=== PATIENT | female | born 1955 | race Caucasian/White ===

== ENCOUNTER 2016-11-05 13:39 | Emergency (ER) | payer OTHER, MEDICARE ==
[~2016-11-05] VITALS: Ht 149.9 cm; Wt 49.9 kg
[~2016-11-05 13:39] MED LIST: CYCLOBENZAPRINE10 M2 PO; GABAPENTIN300 MG PO; TYLENOL #31 TAB PO; VICODIN 300 MG-1 TAB PO
--- NOTE | 2016-11-05 16:32 | ED NECK/BACK PAIN COMPLAINT ---
History of Present Illness General Chief Complaint: Lower Extremity Problems Stated Complaint: LOWER BACK AND LEG PAIN Source: patient Exam Limitations: no limitations Vital Signs & Intake/Output Vital Signs & Intake/Output Vital Signs Date Time Temp Pulse Resp B/P B/P Pulse O2 O2 Flow FiO2 Mean Ox Delivery Rate 11/05 1703 97.0 90 18 160/81 99 Room Air 11/05 1344 97.3 103 20 152/98 96 Room Air Allergies Coded Allergies: MDX - Celecoxib (From CELEBREX) (Severe, NAUSEA 03/10/11) Uncoded Allergies: POLLEN (Severe, NASAL CONGESTION 03/10/11) Reconcile Medications CYCLOBENZAPRINE HCL (Cyclobenzaprine HCl) 10 MG TABLET 10 MG PO BID BACK PAIN (Reported) Gabapentin 300 MG CAPSULE 300 MG PO TID BACK PAIN (Reported) HYDROCODONE/ACETAMINOPHEN (Vicodin 5-300 MG Tablet) 5 MG-300 MG TABLET 1 TAB PO PRN PAIN (Reported) Hydrocodone/Acetaminophen (Vicodin 5-300 MG Tablet) 5 MG-300 MG TABLET 1 TAB PO TID pain Methylprednisolone. (Medrol) 4 MG TAB.DS.PK 1 DP PO AD back pain 6 on day 1 then reduce by one tablet daily until gone Tylenol With Codeine (Tylenol With Codeine #3 Tablet) 300 MG-30 MG TABLET 1-2 TAB PO Q6 PRN PAIN Triage Note: C/O LEFT LOWER BACK PAIN SINCE TUESDAY. STATES PAIN RADIATES INTO LEFT LEG Triage Nurses Notes Reviewed? yes Onset: Abrupt Duration: day(s): (4-5), constant, continues in ED, getting worse Timing: single episode today Quality/Severity: moderate, severe, radiation (left leg), sharpness Location: lumbar spine Radiation: upper legs (left) LMP (ages 10-50): post menopausal : No Patient currently breastfeeds: No HPI: 61-year-old female history of chronic low back pain presents complaining of worsening low back pain for the past 4 or 5 days. Pain is located in the left side of lower back and radiates down the left leg to about the knee. Patient reports there is no triggering event or trauma. Pain is worse with any type of movement or touching the area. Patient was seen at an [facility] and had an MRI of her back which showed a bulging disc in her lumbar spine. She was started on Flexeril and gabapentin which she has been taking without any improvement. He reports the pain as a 10 out of 10 and is described as sharp pain. She denies any fever, numbness, tingling, abdominal pain, chest pain, IVDU, shortness of breath. Patient has an appointment with a neurosurgeon this coming Tuesday. (ASIM POPE PA-C) Past History Travel History Traveled to [place] past 21 day No Medical History Any Pertinent Medical History? see below for history Surgical History Surgical History: none Psychosocial History What is your primary language Japanese Tobacco Use: Quit >30 days ago ETOH Use: denies use Illicit Drug Use: denies illicit drug use Family History Hx Contributory? Yes (ASIM POPE PA-C) Review of Systems Review of Systems Constitutional: Reports: no symptoms. Eyes: Reports: no symptoms. Ears, Nose, Throat, Mouth: Reports: no symptoms. Respiratory: Reports: no symptoms. Cardiovascular: Reports: no symptoms. Gastrointestinal/Abdominal: Reports: no symptoms. Musculoskeletal: Reports: see HPI, back pain, muscle pain. Skin: Reports: no symptoms. Neurological/Psychological: Reports: no symptoms. All Other Systems: Reviewed and Negative (ASIM POPE PA-C) Physical Exam Physical Exam General Appearance: well developed/nourished, no apparent distress, alert, awake , anxious, mild distress Head: atraumatic, normal appearance Eyes: Bilateral: normal appearance, PERRL, EOMI, normal inspection. Ears, Nose, Throat, Mouth: hearing grossly normal, moist mucous membrane, Tympanic normal Neck: normal inspection, supple, full range of motion, normal alignment, no midline tenderness Respiratory: normal breath sounds, chest non-tender, no respiratory distress, lungs clear Cardiovascular: regular rate/rhythm, edema, normal peripheral pulses Peripheral Pulses: 2+ dorsalis pedis (R), 2+ dorsalis pedis (L) Gastrointestinal: normal bowel sounds, soft, non-tender, no organomegaly Back: normal inspection, vertebral tenderness (LUMBAR-SACRAL), decreased range of motion, muscle spasm Extremities: non-tender, straight leg raised (POSITIVE LEFT) Straight Leg Raising: Left: Pain at ____ degrees (45). Sensory: Medial Le: L4R, L4L. Top of Foot: 2: L5R, L5L. Sole of Foot: 2: SIR, SIENNA. Motor: Deficit L4 Right: No Deficit L4 Left: No Deficit L5 Right: No Deficit L5 Left: No Deficit S1 Right: No Deficit S1 Right: No Walk on Heels: 3: L4 Left, L4 Right. DTR: Deficit L4 Left: No Deficit L4 Right: No Deficit S1 Left: No Deficit S1 Right: No Neurologic/Psych: no motor/sensory deficits, awake, alert, oriented x 3, normal gait, normal mood/affect Skin: intact, normal color, warm/dry Comments: Lumbar spine and paraspinous muscles are tender to palpation worse on the left. Range of motion of the lower back is reduced due to pain. No swelling no bruising. No step-offs or deformities. Straight leg raise is positive on the left. Motor or sensory deficits on exam. No signs of cauda equina. (ASIM POPE PA-C) Progress Differential Diagnosis: cauda equina syn, herniated disc, myofascial strain, sciatica, spinal cord inj, T/L spine injury Plan of Care: 4:47 PM patient seen and evaluated. The patient had an MRI of her lumbar spine Tuesday of this week which showed a bulging disc. She has been evaluated by an orthopedic doctor twice this week. She has an appointment with neurosurgery this Tuesday. No signs of cauda equina on exam. Patient will be discharged home on Vicodin and Medrol Dosepak. Patient is nontoxic appearing at discharge. Patient is in agreement with the plan. She'll follow up with neurosurgery this Tuesday. (ASIM POPE PA-C) Departure Departure Disposition: HOME OR SELF CARE Condition: Stable Clinical Impression Primary Impression: Low back pain Qualifiers: Chronicity: acute Back pain laterality: left Sciatica presence: with sciatica Sciatica laterality: sciatica of left side Qualified Code: M54.42 - Lumbago with sciatica, left side Referrals: DREAD COLLINS MD (PCP/Family) Additional Instructions: REST, avoid heavy lifting bending physical activity. Apply warm compresses to the area several times a day. Continue Flexeril and gabapentin as directed. Take Medrol Dosepak as directed for the full course. Vicodin as needed for severe pain. This may cause drowsiness. Monitor your symptoms and return to the emergency department any concerns. Follow-up with neurosurgery this coming Tuesday. Departure Forms: Customer Survey General Discharge Information Prescriptions: Current Visit Scripts Methylprednisolone. (Medrol) 1 DP PO AD #1 DP 6 on day 1 then reduce by one tablet daily until gone Hydrocodone/Acetaminophen (Vicodin 5-300 MG Tablet) 1 TAB PO TID #10 TAB (ASIM POPE PA-C) PA/WALLBOARD WORKER Co-Sign Statement Statement: Kamaljit are not 20 pads a monthED Attending supervision documentation- [] I saw and evaluated the patient. I have also reviewed all the pertinent lab results and diagnostic results. I agree with the findings and the plan of care as documented in the PA's/WALLBOARD WORKER's documentation. [x] I have reviewed the ED Record and agree with the PA's/WALLBOARD WORKER's documentation. [] Additions or exceptions (if any) to the PAs/WALLBOARD WORKER's note and plan are summarized below: [] (GOLD [employer]UBBS DO)
[2016-11-05] MEDS ORDERED: MEDROL4 M2 PO (16:52)
[2016-11-05] MEDS ORDERED: VICODIN 5-3001 EACH PO (16:52)
[2016-11-05 17:03] VITALS: BP 160/81
== END 2016-11-05 17:09 ==
LOC: ERH 13:39
DX: M54.5 Low back pain (principal)